=== PATIENT | female | born 1990 | race Caucasian/White ===

== ENCOUNTER 2016-10-28 06:05 | Emergency (ER) | payer OTHER | END 2016-10-28 07:26 | disposition home or self-care (01) | LOC: ER 06:05 | DX: R11.2 Nausea with vomiting, unspecified (principal); R05 Cough; R50.9 Fever, unspecified; J02.9 Acute pharyngitis, unspecified; F17.210 Nicotine dependence, cigarettes, uncomplicated | CPT/HCPCS: 87502; 87651 ==

== ENCOUNTER 2016-11-25 15:05 | Emergency (ER) | payer OTHER | END 2016-11-25 15:14 | disposition home or self-care (01) | LOC: ER 15:05 | DX: K02.9 Dental caries, unspecified (principal); F17.210 Nicotine dependence, cigarettes, uncomplicated ==

== ENCOUNTER 2017-05-15 08:59 | Emergency (ER) | payer OTHER | END 2017-05-15 10:28 | disposition home or self-care (01) | LOC: ER 08:59 | DX: J40 Bronchitis, not specified as acute or chronic (principal); Z79.899 Other long term (current) drug therapy | CPT/HCPCS: 87502 ==